=== PATIENT | male | born 1950 | race Caucasian/White ===

== ENCOUNTER 2019-01-28 20:03 | Emergency (ER) | payer MEDICARE, MEDICAID, SELFPAY ==
[2019-01-28 20:04] VITALS: BP 140/85; PULSE 80; RESP 16; TEMP 36.7; O2SAT 97; BMI 24.5
--- NOTE | 2019-01-28 20:26 | RAD_ITS ---
STUDY: X-RAY - RIGHT FOOT CLINICAL: Male, 68 years old. Pain without known injury TECHNIQUE: 3 view(s) of the foot. COMPARISON: None. FINDINGS: No acute fracture, dislocation or osseous destruction. Small plantar and Achilles calcaneal spurs. Minimal joint space narrowing at the first MTP joint. No significant productive changes. No significant soft tissue swelling. IMPRESSION: No acute fracture or dislocation. Electronically Signed: Zane Witt, at 21:41 EST Tel , Service support , RAD/Foot min 3 Views
--- NOTE | 2019-01-28 20:27 | ED.DCSUM_ITS ---
History of Present Illness Chief Complaint: Lower Extremity Injury Informant: Patient Onset: Today Context: Gradual Onset Timing: Continuous Quality of Pain: Aching Location: top of right foot, radiating up lower leg Current Severity: Severe Maximum Severity: Severe Worsened by: palpation, walking Relieved by: leaving alone Associated Symptoms: Negative for: Parasthesia, Weakness, Loss of Funtion Narrative: Spontaneous onset of painful redness on the top of his right foot that he noticed this morning upon awakening, closer to his toes. As the day and evening have gone on, the redness and pain become more swollen and progressed up his fo ot to the distal lower leg. He denies involvement elsewhere, fevers, systemic symptoms, or any known injury. No recent foreign body or splits in the webspaces of his feet. He has been putting athlete's foot powder on his feet lately. He had an injury that was relatively minor to the great toe months ago that resulted in bruising and subungual hematoma that has been managed conservatively, he states it does not bother him anymore and the nail has been slowly pushing the bruising out as it grows. - Past Medical History (1) Benign essential hypertension Status: Chronic (2) Dyslipidemia Status: Chronic Past Medical History - Allergies and Home Meds Allergies/Adverse Reactions: Allergies No Known Allergies Allergy (Verified 01/28/19 20:05) Primary Care Physician: Mario Cadet MD [NON-STAFF] - Surgical History: no surgical history Smoking Status: Former smoker Drugs: None Review of Systems General: Denies: Chills, Fever, Sweats Eyes: Denies: Visual changes - bilaterally, Diplopia ENT: Denies: Rhinorrhea, Sore throat Cardiovascular: Denies: Chest pain, Palpitations Respiratory: Denies: Dyspnea, Cough, Dyspnea on exertion Gastrointestinal: Denies: Abdominal pain, Nausea, Vomiting, Diarrhea, Melena, Hematochezia Genitourinary: Denies: Dysuria, Hematuria, Frequency Musculoskeletal: Reports: Swelling - R foot, Extremity Pain. Denies: Back pain Skin: Reports: Rash - redness. Denies: Wounds Neurological: Denies: Headache, Weakness, Numbness Physical Exam Vital Signs/Narrative: Vital Signs Temp Pulse Resp BP Pulse Ox 01/28/19 20:04 98.1 F 80 16 140/85 H 97 Inital Vital Signs reviewed: Yes - Extremity Exam Right Foot: - - Swelling and blanching erythema with significant tenderness and warmth more along the midfoot and forefoot, along the second and third rays. No hindfoot involvement. Lymphangitis senior living up the anterior and medial aspect of the lower leg that is also tender but less so. No palpable cords, no pedal edema. No inguinal lymphadenopathy. Full range of motion of the ankle and knee. No foreign bodies or acute wounds or signs of any infection in any of the toes or webspaces or plantar aspect of the foot. There appears to be a chronic, old subungual hematoma of the peroneal aspect of the right great toenail, distal half, nontender. General: Well nourished, Well developed Head: Normocephalic, Atraumatic Eyes: Perrl, EOMI Cardiovascular: Regular rate, Regular rhythm, No murmurs. Negative for: Tachycardia Respiratory: No distress, CTA bilaterally, Chest nontender Abdomen: Soft, Nontender, - - no inguinal LAD Skin: No Trauma, Rash - c/w cellulitis without abscess R foot w/ lymphangitis Neurological: Alert, Oriented x3, Cranial nerves II-XII grossly intact, Normal Strength, Normal Sensation Psychological: Normal affect, Normal Mood Diagnostic/Tx/Re-eval Impressions Foot X-Ray 01/28/19 20:26 01/28/19 20:26 Foot min 3 Views [RAD] Stat Laboratory Results 01/28/19 01/28/19 20:35 20:35 WBC 7.9 RBC 4.67 Hgb 13.9 Hct 42.1 MCV 90.1 MCH 29.8 MCHC 33.0 RDW Std Deviation 42.6 RDW Coeff of Odell 13.0 Plt Count 251 MPV 9.2 Immature Gran % (Auto) 0.300 Neut % (Auto) 64.6 Lymph % (Auto) 25.5 [place] % (Auto) 7.9 Eos % (Auto) 1.3 Baso % (Auto) 0.4 Absolute Neuts (auto) 5.1 Absolute Lymphs (auto) 2.01 Nucleated RBC % 0 Sodium 142 Potassium 3.6 Chloride 110 H Carbon Dioxide 25.0 Anion Gap 7 BUN 18 Creatinine 0.98 Estim Creat Clear Calc 65.58 Est GFR (MDRD) Af Amer 97 Est GFR (MDRD) Non-Af 80 BUN/Creatinine Ratio 18.3 Glucose 137 H Calcium 8.6 - Medical Decision Making Work-up including x-rays fairly unremarkable, however clinically he appears to have cellulitis with lymphangitis. He was given Zosyn, and will be prescribed cephalexin as an outpatient, as strep would be the most likely cause here. There is no abscess to suggest MRSA. He is not at specific risk for that. He was given dose of morphine to help with the pain, it helped and he is tolerating the discomfort well enough to walk. I do not think he needs narcotics at this time, we discussed reasons to return. He is agreeable with plan and will follow up with his doctor. ED Disposition - Plan for ED Patient: Disposition: Home or Assisted Living Diagnosis: Cellulitis of right foot without toes Instructions: Cellulitis Prescriptions: Cephalexin [Keflex] 500 mg PO 4X/DAY #40 cap Prescription Printed Referrals: Mario Cadet MD [NON-STAFF] - 3-5 Days
[2019-01-28] MEDS: Morphine 2 MG/ML Syringe IV (20:41)
[2019-01-28 20:49] LABS: Absolute Lymphocyte Count 2.01 X10^3/uL (0.83-4.51); Absolute Neutrophil Count 5.1 X10^3/uL (2.0-7.7); Basophil# 0.03 X10^3/uL; Basophil% 0.4 % (0-1); Eosinophils% 1.3 % (0-5); Hematocrit 42.1 % (40-54); Hemoglobin 13.9 g/dL (13.0-16.5); Lymphocyte # 2.01 X10^3/ul (4.0); Lymphocyte % 25.5 % (19-41); Mean Corpuscular Hgb 29.8 pg (27.0-32.0); Mean Corpuscular Volume 90.1 fL (80-94); Mean Platelet Vol. 9.2 fl (6.2-12.0); Monocyte# 0.62 X10^3/uL; Monocyte% 7.9 % (0-10); NRBC Flagged by Analyzer 0 % (0-5); Neutrophil # 5.09 X10^3/uL (2.7-7.7); Neutrophil % 64.6 % (47-70); Platelet Count 251 K/mm3 (150-450); RBC Distribution Width SD 42.6 fl (35.1-43.9); Red Blood Count 4.67 M/mm3 (4.6-6.2); White Blood Count 7.9 K/mm3 (4.4-11.0)
[2019-01-28 21:03] LABS: Anion Gap 7 (5-15); BUN 18 mg/dL (7-18); BUN/Creat Ratio 18.3 RATIO (10-20); Calcium,Total 8.6 mg/dL (8.5-10.1); Chloride 110 mmol/L (98-107); Creatinine, Serum 0.98 mg/dL (0.70-1.30); EST Glomerular Filtration Rate 80 mL/min (>60); Est Glom Filt Rate - Afr Amer 97 mL/min (>60); Estimated Creatinine Clearance 65.58 ml/min; Glucose 137 mg/dL (74-106); Potassium 3.6 mmol/L (3.5-5.1); Sodium Level 142 mmol/L (136-145)
[2019-01-28 22:08] VITALS: BP 124/73; PULSE 74; RESP 16; O2SAT 98
--- NOTE | 2019-01-30 15:09 | ED.RN ---
pt called inquiring of possibility of cutting the dose of his atb. I spoke to Dr Milligan and verified the pt must continue atb as ordered to properly tret his cellulitis. Pt verbalized understanding.
== END 2019-01-28 22:36 | disposition home or self-care (01) ==
PROVIDERS: Emergency Provider Emergency Medicine; Family Provider Family Medicine; PCP Family Medicine
DX: L03.115 Cellulitis of right lower limb (principal); I10 Essential (primary) hypertension; Z79.899 Other long term (current) drug therapy; Z87.891 Personal history of nicotine dependence
CPT/HCPCS: 73630; 80048; 85025; 87040; 96365; 96375; 99283

== ENCOUNTER 2021-02-11 22:44 | Emergency (ER) | payer MEDICARE, MEDICAID, SELFPAY ==
[2021-02-11 22:45] VITALS: BP 186/91; PULSE 60; RESP 16; TEMP 36.6; O2SAT 100; BMI 25.0
[2021-02-11 23:00] VITALS: RESP 16
--- NOTE | 2021-02-11 23:01 | ED.VIS.LOWEX ---
HPI History of Present Illness Chief Complaint: Lower Extremity Injury Detail of Chief Complaint: Right foot redness. No trauma. No injury. Informant: patient Occured/Mechanism Mechanism/Context: No injury Onset/Context/Timing Onset: Days Context: Gradual Onset Timing: Continuous Current Severity: Mild Maximum Severity: Mild Associated Symptoms Associated Symptoms: Negative for Parasthesia, Weakness and Loss of Funtion Narrative Narrative: 70-year-old male believes he has cellulitis on his right foot. States he looked it up on the Internet. Says mildly swollen and painful. Said this started on is now his third day. He denies any trauma or injury. He is not diabetic. Prior similar symptoms: No Recent Illness/Hospitalization: No PFSH PFSH Home Medications cephalexin 500 mg PO 4X/DAY #40 cap 01/28/19 [Rx Last Taken Unknown] omeprazole 20 mg PO DAILY 01/28/19 [History Last Taken Unknown] propranolol 10 mg PO DAILY 01/28/19 [History Last Taken Unknown] cephalexin 500 mg PO Q6H 10 Days #40 cap 02/11/21 [Rx Last Taken Unknown] Allergy/AdvReac Type Severity Reaction Status Date / Time No Known Allergies Allergy Verified 02/11/21 22:46 Social History Smoking Status: Former smoker ROS ROS ED ROS Narrative Red swollen right foot. Review of Systems ROS Unobtainable: Denies due to encephalopathy Constitutional Constitutional ED: Denies fever(s) Eyes Eyes: Denies change in vision ENT ENT ED: Denies ear pain Cardiovascular Cardiovascular: Denies chest pain Respiratory/Chest Respiratory/Chest: Denies dyspnea Gastrointestinal Gastrointestinal: Denies abdominal pain, nausea or vomiting Genitourinary Genitourinary ED: Denies dysuria Musculoskeletal Musculoskeletal: Denies myalgias Integumentary Reports rash Neurologic Neurologic: Denies headache(s) Psychiatric Psychiatric: Denies depression Endocrine Endocrinology: Denies polyuria Hematologic/Lymphatic Hematologic/Lymphatic: Denies easy bruising Allergic/Immunologic Allergic/Immunologic ED: Denies urticaria EXAM Physical Exam Narrative Exam Narrative: 1-year-old male no acute distress vital signs stable afebrile. Lungs clear. Heart regular rhythm. Abdomen soft. Patient moving all 4 extremities. The right lateral aspect top of his foot has mild redness and swelling consistent with early cellulitis. Foot is neurovascular intact with normal DP pulse. There is no streaking. There is no inguinal lymphadenopathy. Otherwise exam benign. Const Vital Signs: 02/11/21 22:45 Temperature 98 F Temperature Source Temporal Pulse Rate 60 Respiratory Rate 16 Blood Pressure 186/91 H Blood Pressure Mean 122 Pulse Ox 100 Oxygen Delivery Method Room Air HEENT Reports moist mucous membranes normocephalic; Negative for atraumatic, trauma or tenderness Eyes PERRL Neck full ROM and supple Thyroid: Negative for tender Chest Wall inspection of chest normal and palpation of chest normal Resp normal respiratory effort, no retractions and clear to auscultation bilaterally Auscultation: Negative for rales, rhonchi or wheezes Cardio regular rate, regular rhythm, S1 normal heart sound, S2 normal heart sound and no murmurs GI non-tender, non-distended and no masses Auscultation: normoactive bowel sounds Palpation: soft; Negative for tender or guarding Back/Spine no CVA tenderness General Back: Negative for CVA tenderness Cervical Spine: Negative for cervical spine tenderness Thoracic Spine / Upper Back: Negative for thoracic spinal tenderness Extremity normal to inspection and full ROM Extremity Narrative: Right foot mild swelling, redness to top lateral aspect of the right foot. No signs of trauma. No bony deformity. No puncture wound. Foot neurovascular intact. No streaking. No inguinal lymphadenopathy. Consistent with early cellulitis. General Extremety ED: Yes edema; Negative for cyanosis General Extremity: edema; Negative for cyanosis Neuro oriented x3 and moves all extremities Sensorium / Orientation: alert, oriented to person, oriented to place and oriented to time; Negative for orientation impaired, confused, lethargic or stuporous Motor Exam: strength 5/5 throughout Psych mental status grossly normal Mood & Affect: Negative for anxious Skin no wounds Lesions: no lesions Rashes: No no rashes Trauma: abrasion MDM MDM MDM Narrative Medical decision making narrative: Patient was started on Keflex. First dose given in ER. Prescription to be filled at her pharmacy for 10 days 4 times a day. Outpatient follow-up in the next several days to ensure he is improving. Return if worse. Discharge Plan Triage Chief Complaint: Lower Extremity Injury ED Provider: Garrett Wilson Dx/Rx/DC Orders Clinical Impression: Cellulitis Instructions: ED Cellulitis Prescriptions: New cephalexin 500 mg capsule 500 mg PO Q6H 10 Days Qty: 40 RF: 0 No Action propranolol 10 MG tablet 10 mg PO DAILY RF: 0 omeprazole 20 MG capsule,delayed release(DR/EC) 20 mg PO DAILY RF: 0 cephalexin 500 MG capsule 500 mg PO 4X/DAY Qty: 40 RF: 0 Primary Care Provider: Juvenal Sellers Referrals: Juvenal Sellers MD [Primary Care Provider] - 3-5 Days Activity Restrictions/Additional Instructions: Keflex antibiotic 1 pill 4 times a day till gone. Follow-up with your doctor if not improving return emergency department if it is getting worse such as worsening swelling, red streaks or you are feeling significantly worse. Tylenol for pain. Limited Motrin. Disposition Disposition: Home, Self Care
[2021-02-11] MEDS: Cephalexin 250 MG Capsule 500 MG PO (23:12)
== END 2021-02-12 00:08 | disposition home or self-care (01) ==
LOC: ED 23:09
PROVIDERS: Emergency Provider Emergency Medicine; PCP Family Medicine
DX: L03.115 Cellulitis of right lower limb (principal); Z87.891 Personal history of nicotine dependence
CPT/HCPCS: 99282

== ENCOUNTER 2021-04-13 14:26 | Outpatient (CLI) | payer MEDICARE, MEDICAID, SELFPAY ==
[2021-04-13 14:39] VITALS: BP 152/91; PULSE 68; RESP 16; TEMP 37; O2SAT 97; BMI 24.7
[2021-04-13] MEDS: 0.9% Saline Lock 10 ML Syringe IV (14:47)
[2021-04-13 15:18] VITALS: BP 137/77; PULSE 66; RESP 16; TEMP 37.1; O2SAT 98
[2021-04-13 16:14] VITALS: BP 158/85; PULSE 62; RESP 16; TEMP 37; O2SAT 98
== END 2021-04-13 23:59 | disposition home or self-care (01) ==
LOC: MS3OUT 14:26 → MS3 14:27
PROVIDERS: PCP Family Medicine; Referring Provider Nurse Practitioner Adult Health; Visit Provider Nurse Practitioner Adult Health
DX: Z23 Encounter for immunization (principal); U07.1 COVID-19
CPT/HCPCS: J7050; M0245; Q0245; A4216

== ENCOUNTER 2023-12-10 12:43 | Emergency (ER) | payer MEDICARE, MEDICAID, SELFPAY ==
[2023-12-10 12:44] VITALS: BP 166/83; PULSE 80; RESP 16; TEMP 36.8; O2SAT 98; BMI 25.5
--- NOTE | 2023-12-10 13:15 | RAD_ITS ---
EXAM: XR CHEST, 2 VIEWS CLINICAL INDICATION: cough, sob TECHNIQUE: Frontal and lateral views of the chest. COMPARISON: 06/05/2012. FINDINGS: LUNGS AND PLEURAL SPACES: Round soft tissue density in the left retrocardiac region may represent gastric hernia rather than pneumonia. No pneumothorax. No effusion. HEART: Unremarkable. Cardiac silhouette not enlarged. MEDIASTINUM: Central airways and mediastinal contour are unremarkable. BONES/JOINTS: Unremarkable. No acute fracture. SOFT TISSUES: Unremarkable. RAD/Chest PA and Lateral IMPRESSION: Round soft tissue density in the left retrocardiac region may represent gastric hernia rather than pneumonia. CT chest will help clarify if pneumonia is a strong clinical consideration. Electronically Signed: Papa Cruz MD at 14:06 EDT ,
--- NOTE | 2023-12-10 13:21 | EX.ED.DYSGE1 ---
HPI History of Present Illness Chief Complaint: Cough Informant: patient Narrative Narrative: 72-year-old male started feeling ill yesterday with gradual onset of all symptoms: Cough, mild dyspnea with exertion, faint/dizzy/lightheaded without vertiginous symptoms or nausea/vomiting, headache, discomfort in his low back. Also has had 3 episodes of urinary urgency, feeling like he could not get to the bathroom fast enough in the past 8 hours. No chest pain. No focal neurologic symptoms but he is weak due to feeling lightheaded. [facility] Medical History Tremors of nervous system Hypertension Home Medications ?Medication ?Instructions ?Recorded ?Last Taken ?Type omeprazole 20 mg capsule,delayed 20 mg PO DAILY 01/28/19 Unknown History release propranolol 10 mg tablet 10 mg PO DAILY 01/28/19 Unknown History benzonatate 100 mg capsule 100 mg PO TID 04/13/21 Unknown History lisinopril 10 mg tablet 10 mg PO DAILY 04/13/21 Unknown History rosuvastatin 5 mg tablet 5 mg PO DAILY 04/13/21 Unknown History Allergy/AdvReac Type Severity Reaction Status Date / Time No Known Allergies Allergy Verified 12/10/23 12:45 Social History household members: none Smoking Status: Never smoker EXAM Physical Exam Const Vital Signs: 12/10/23 12:44 12/10/23 13:08 12/10/23 14:44 Temperature 98.2 F Temperature Source Temporal Pulse Rate 80 79 Respiratory Rate 16 18 Respiratory Effort Normal Short of Breath Respiratory Depth Normal Respiratory Pattern Normal Blood Pressure 166/83 H 138/79 H Blood Pressure Mean 110 98 Pulse Ox 98 98 Oxygen Delivery Method Room Air MDM MDM MDM Narrative Medical decision making narrative: Patient states has not been drinking water/fluids well. Given his concern of cough, mild dyspnea, low back pain, and possible dehydration, I obtained an EKG to evaluate his rhythm, it is normal and his EKG is normal. Obtained basic labs, mildly prerenal but not overly dehydrated creatinine normal. Urinalysis, negative for infection, urine slightly concentrated with a specific gravity 1.020. Chest x-ray 2 views of mitral rotation no gross pneumonia, radiology notes that he looks like he has hiatal hernia but it may be an occult pneumonia recommends plain CT. At that point his COVID/influenza/RSV swab not yet resulted so I sent him for CT. I reviewed the images and the report which I agree with, it is consistent with a fairly good sized hiatal hernia, sliding, without acute consolidation/pneumonia. Subsequently, his swab came back positive for COVID explaining his symptoms. Clinically patient doing well he is ambulatory although initially he was weak and having trouble sitting himself up in bed, he is walking to and from the bathroom without difficulty. No hypoxemia with ambulation. Pulse ox 98% on room air. Vital signs stable. Stable for discharge home, no antibiotics indicated at this time for anything him seen. Lab Data Attestation: I reviewed the patient's lab results. Labs: Laboratory Results - last 24 hr 12/10/23 13:42 WBC 8.0 RBC 4.84 Hgb 13.9 Hct 43.2 MCV 89.3 MCH 28.7 MCHC 32.2 RDW Std Deviation 43.6 RDW Coeff of Odell 13.3 Plt Count 210 MPV 9.1 Immature Gran % (Auto) 0.400 Neut % (Auto) 80.0 H Lymph % (Auto) 8.6 L [place] % (Auto) 10.3 H Eos % (Auto) 0.3 Baso % (Auto) 0.4 Absolute Neuts (auto) 6.4 Absolute Lymphs (auto) 0.69 L Nucleated RBC % 0 Sodium 139 Potassium 3.8 Chloride 107 Carbon Dioxide 26.0 Anion Gap 6 BUN 14 Creatinine 0.97 Estim Creat Clear Calc 62.47 Est GFR (MDRD) Af Amer 97 Est GFR (MDRD) Non-Af 80 BUN/Creatinine Ratio 14.5 Glucose 98 Calcium 9.0 Urine Color Yellow Urine Clarity Clear Urine pH 6.0 Ur Specific [place] 1.020 Urine Protein 15 H Urine Glucose (UA) Normal Urine Ketones 5 H Urine Occult Blood 25 H Urine Nitrite Negative Urine Bilirubin Negative Urine Urobilinogen Normal Ur Leukocyte Esterase Negative Urine RBC 0-5 SEEN Urine WBC 0 SEEN Ur Squamous Epith Cells 0-5 SEEN Urine Bacteria 0 SEEN Urine Mucus 1+ Radiography Diagnostic Testing: Clinical Impression(s) from Imaging Studies Chest X-Ray 12/10/23 13:15 IMPRESSION: Round soft tissue density in the left retrocardiac region may represent gastric hernia rather than pneumonia. CT chest will help clarify if pneumonia is a strong clinical consideration. Electronically Signed: Papa Cruz MD at 14:06 EDT , Rhythm Strip Rhythm Strip: Sinus Rhythm Rate: 80 Ectopy: None EKG Initial EKG: Attestation: I personally reviewed and interpreted this EKG as follows: Interpretation: Sinus Rhythm and No Acute Injury Pattern Comments: nml ekg Discharge Plan Triage Chief Complaint: Cough ED Provider: Reddy Milligan Dx/Rx/DC Orders Clinical Impression: COVID-19 Instructions: Coronavirus Disease 2019 (COVID-19): Caring for Yourself or Others Prescriptions: No Action propranolol 10 MG tablet 10 mg PO DAILY omeprazole 20 MG capsule,delayed release(DR/EC) 20 mg PO DAILY benzonatate [Tessalon Perles] 100 mg Capsule 100 mg PO TID lisinopril 10 mg tablet 10 mg PO DAILY rosuvastatin 5 mg tablet 5 mg PO DAILY Primary Care Provider: Juvenal Sellers Referrals: Juvenal Sellers MD [Primary Care Provider] - As Needed Activity Restrictions/Additional Instructions: Try to get a home portable pulse oximeter and closely watch your oxygen levels periodically. If you stay below 90% for more than a minute or so, and/or you are feeling like your breathing is getting worse, return to the emergency department for further evaluation. Currently, CDC recommendations state that you should stay home through day 5 of symptoms (12/11), then as long as symptoms are improving, if you need to go to work or somewhere else you may for days 6-10 as long as you are wearing a mask the entire time. If you are feeling better after day 10 you may resume life is normal. Print Language: Serbian Disposition Disposition: Home, Self Care
[2023-12-10] MEDS: 0.9% Normal Saline (1000mL) 1,000 ML 999 ML IV (13:39)
[2023-12-10 13:49] LABS: Absolute Lymphocyte Count 0.69 X10^3/uL (0.83-4.51); Absolute Neutrophil Count 6.4 X10^3/uL (2.0-7.7); Bacteria 0 SEEN /hpf (None Seen); Basophil# 0.03 X10^3/uL; Basophil% 0.4 % (0-1); Eosinophil# 0.02 X10^3/uL; Eosinophils% 0.3 % (0-5); Hematocrit 43.2 % (40-54); Hemoglobin 13.9 g/dL (13.0-16.5); Lymphocyte # 0.69 X10^3/ul (0.83-4.51); Lymphocyte % 8.6 % (19-41); Mean Corp Hgb Conc 32.2 g/dL (32-36); Mean Corpuscular Hgb 28.7 pg (27.0-32.0); Mean Corpuscular Volume 89.3 fL (80-94); Mean Platelet Vol. 9.1 fl (6.2-12.0); Monocyte# 0.82 X10^3/uL; Monocyte% 10.3 % (0-10); NRBC Flagged by Analyzer 0 % (0-5); Neutrophil # 6.39 X10^3/uL (2.7-7.7); Platelet Count 210 K/mm3 (150-450); RBC Distribution Width CV 13.3 % (11.6-14.6); RBC Distribution Width SD 43.6 fl (35.1-43.9); Red Blood Count 4.84 M/mm3 (4.6-6.2); White Blood Cells 0 SEEN /hpf (0-5)
[2023-12-10 13:50] LABS: Color, Urine Yellow (Yellow); Glucose, Dipstick Normal (Normal); Ketone-Dipstick 5 mg/dl (Negative); Leukocyte Esterase-Dipstick Negative /ul (Negative); Nitrite-Dipstick Negative (Negative); Occult Blood-Urine 25 /ul (Negative); Protein-Dipstick 15 mg/dl (Negative); Urine Bilirubin Dipstick Negative (Negative); Urine Clarity Clear (Clear); Urine Urobilinogen Normal (Normal)
[2023-12-10 13:56] LABS: Mucous, Urine 1+ /hpf (<or=2+); Red Blood Cells-Urine 0-5 SEEN /hpf (0-5); Squamous Epithelial Cells - UA 0-5 SEEN /hpf (0-5)
[2023-12-10 14:09] LABS: Anion Gap 6 (5-15); BUN 14 mg/dL (7-18); BUN/Creat Ratio 14.5 RATIO (10-20); Chloride 107 mmol/L (98-107); Creatinine, Serum 0.97 mg/dL (0.70-1.30); EST Glomerular Filtration Rate 80 mL/min (>60); Est Glom Filt Rate - Afr Amer 97 mL/min (>60); Estimated Creatinine Clearance 62.47 ml/min; Glucose 98 mg/dL (74-106); Potassium 3.8 mmol/L (3.5-5.1); Sodium Level 139 mmol/L (136-145)
--- NOTE | 2023-12-10 14:19 | CT_ITS ---
EXAM: CT CHEST WITHOUT INTRAVENOUS CONTRAST CLINICAL INDICATION: Cough. SOB. Abnormal chest x-ray. TECHNIQUE: Helically acquired images were obtained of the chest without intravenous contrast. This CT exam was performed using one or more of the following dose reduction techniques: automated exposure control, adjustment of the mA and/or kV according to patient size, and/or use of iterative reconstruction technique. RADIATION DOSE: CTDIvol = 12.48 mGy, DLP = 480.42 mGy-cm COMPARISON: CT chest with contrast 06/04/2012. FINDINGS: ARTIFACTS: Breathing motion artifacts in some images. LUNGS AND PLEURAL SPACES: No suspicious groundglass opacities, consolidation or pulmonary edema. The lungs are clear. Mild pulmonary hyperinflation with flattening of the hemidiaphragms. No mass. No pleural effusion or thickening. No pneumothorax. HEART: Unremarkable. Heart size is normal. No pericardial effusion. No significant coronary artery calcifications. MEDIASTINUM: See below. THYROID: Unremarkable. No thyroid lesions. BONES/JOINTS: Unremarkable. No suspicious lytic or blastic abnormality. SOFT TISSUES: Prominent gastric hernia in the posterior mediastinum has increased in size. It bulges to the left of midline accounting for the left retrocardiac density seen on chest x-ray. VASCULATURE: Unremarkable. Thoracic aorta is non-dilated. CT/Chest without Contrast IMPRESSION: 1. No CT evidence of pneumonia or pulmonary nodules or lung mass. 2. Airway predominant type of COPD. 3. Mild increased size of prominent gastric hernia in the posterior mediastinum. This accounts for the round density seen on chest x-ray. Electronically Signed: Papa Cruz MD at 15:33 EDT ,
[2023-12-10 14:44] VITALS: BP 138/79; PULSE 79; RESP 18; O2SAT 98
[2023-12-10 15:29] VITALS: BP 138/76; PULSE 89; RESP 17; TEMP 36.8; O2SAT 96
== END 2023-12-10 15:30 | disposition home or self-care (01) ==
PROVIDERS: Emergency Provider Emergency Medicine; PCP Family Medicine; Visit Provider Emergency Medicine
DX: U07.1 COVID-19 (principal); I10 Essential (primary) hypertension; Z79.899 Other long term (current) drug therapy
CPT/HCPCS: 71046; 71250; 80048; 81001; 85025; 87631; 93005; 96360; 96361; 99283; J7030; A4216

== ENCOUNTER → 2024-09-14 | Outpatient (CLI) | payer MEDICARE, MEDICAID, SELFPAY ==
[2024-09-14 11:01] LABS: ALB/GLOB Ratio 1.6 RATIO (0.9-2.4); AST(SGOT) 26 U/L (<=37); Alanine Aminotransfer ALT/SGPT 19 U/L (<=46); Albumin, Serum 4.5 g/dL (3.4-4.8); Alkaline Phosphatase 61 U/L (40-129); Anion Gap 11 (5-15); BUN 15 mg/dL (4-19); BUN/Creat Ratio 14.6 RATIO (10-20); Calcium,Total 9.3 mg/dL (7.6-11.0); Carbon Dioxide 24.2 mmol/L (21.0-32.0); Chloride 107 mmol/L (98-108); Cholesterol 165 mg/dL (<=200); Creatinine, Serum 1.02 mg/dL (0.70-1.20); EST Glomerular Filtration Rate 77 (>60); Globulin 2.9 g/dL (2.2-4.2); Glucose 98 mg/dL (70-99); High Density Lipoprotein 36 mg/dL; Low Density Lipoprotein Calc. 100 mg/dL; Potassium 4.5 mmol/L (3.3-5.1); Protein, Total 7.4 g/dL (5.9-8.4); Sodium Level 143 mmol/L (133-145); Total Bilirubin 0.47 mg/dL (0.00-1.30); Triglycerides 149 mg/dL; Very Low Density Lipoprotein 30 mg/dL (5-40); cholesterol:hdl ratio screen 4.63
[2024-09-14 11:16] LABS: Hemoglobin A1c 6.1 % (<=5.6)
== END | disposition home or self-care (01) ==
LOC: LAB 08:22
PROVIDERS: PCP Family Medicine; Referring Provider Family Medicine; Visit Provider Family Medicine
DX: R73.09 Other abnormal glucose (principal); E78.00 Pure hypercholesterolemia, unspecified
CPT/HCPCS: 36415; 80053; 80061; 83036